=== PATIENT | male | born 1975 | race Caucasian/White ===

== ENCOUNTER 2017-08-06 01:29 | Emergency (ER) | payer OTHER ==
[2017-08-06] MEDS: ASPIRIN 81 MG CHEW TAB PO ONE (02:00)
--- NOTE | 2017-08-06 02:13 | ED Physician Documentation ---
General Adult - HISTORIAN Historian: patient, spouse - HPI Stated Complaint: Chest tightness tonight, hx of past 3 days with cough also Chief Complaint: General Adult Additional Information: Cough since 07/27. Last 3 days cough has been deeper, more severe, the last 3 days. Always non productive. Just didn't feel good this evening especially about midnight. Has pain/pressure mid chest that radiates into left arm. Had tingling left arm. Can't describe the pain. Pain is improved in the ER. HX hypertension. Gets bronchitis every year. Says his father 08/01 and his truck quit; under a lot of stress. - ROS CONST: denies: fever CVS/RESP: chest pain, cough - PAST HX Past History: hypertension, other (migraines) Surgeries/Procedures: other (ortho) Allergies/Adverse Reactions: Allergies Allergy/AdvReac Type Severity Reaction Status Date / Time No Known Allergies Allergy Verified 08/06/17 01:46 Home Medications: Ambulatory Orders Medication Instructions Recorded Eletriptan HBr [Relpax] 40 mg PO PRN PRN 08/06/17 Sumatriptan Succinate [Sumatriptan 100 mg PO PRN PRN 08/06/17 Succinate] - SOCIAL HX Smoking History: quit greater than 1 year, cigarettes, chew Alcohol Use: occasionally (5 drinks/week) Drug Use: none - FAMILY HX Family History: No - VITAL SIGNS Vital Signs: Vital Signs Temp Pulse Resp BP Pulse Ox 98.1 F 82 20 133/89 97 08/06/17 01:29 08/06/17 01:52 08/06/17 01:29 08/06/17 01:29 08/06/17 01:52 - REVIEWED ASSESSMENTS Nursing Assessment Reviewed: Yes Vitals Reviewed: Yes Progress - Progress Progress: Name: CASS ANDRES Date: Aug 06, 2017 2:05:37 AM STRAIGHTEDGE MAN Modality Type: CR Gender: M Description: CHEST : 75 Institution: [facility] Physician: STUART MUÑIZ - Portable chest Clinical history: CHEST PAIN FOR 4 DAYS Findings: Examination of the chest in single portable AP view demonstrates the lungs to be clear. Monitor leads superimpose the chest. Cardiovascular and mediastinal silhouettes are within normal limits. Impression: 1. Negative chest. Electronically signed on Aug 06, 2017 2:23:29 AM STRAIGHTEDGE MAN by: Mayo Land [id number], syays he has only momentary CP's which he can't describe, and they are relieved if he takes a deep breath. Labs, including serial Troponin I's, all negative. ED Results Lab/Radiology - Orders Orders: ED Orders Category Date Time Status Continuous EKG monitoring Q1H Care 08/06/17 01:52 Active Continuous Pulse Oximetry Q1H Care 08/06/17 01:52 Active CHEST 1 VIEW [RAD] Stat Exams 08/06/17 Ordered CBC/PLATELET/DIFF Routine Lab 08/06/17 Ordered CMP Routine Lab 08/06/17 Ordered TROPONIN I (cTnI) Stat Lab 08/06/17 Ordered URINALYSIS Routine Lab 08/06/17 Ordered Aspirin Med 08/06/17 01:57 Once 324 mg PO NOW ONE General Adult Physical Exam - PHYSICAL EXAM GENERAL APPEARANCE: mild distress (anxious) EENT: eye inspection normal, ENT inspection normal, pharynx normal (Mallampati 2 ) NECK: normal inspection, supple RESPIRATORY: no resp distress, chest non-tender, breath sounds normal CVS: reg rate & rhythm, heart sounds normal, no murmur, other (no HJR) ABDOMEN: soft, normal bowel sounds, no distension, non-tender BACK: normal inspection, no CVA tenderness, other (no vertebral tenderness) SKIN: warm/dry, normal color EXTREMITIES: non-tender, no evidence of injury NEURO: CN's nml as tested, motor nml, sensation nml, cognition normal Discharge Clincal Impression: Chest pain not due to acute coronary syndrome Referrals: Madelyn Polo MD [Primary Care Provider] - 2 Days Additional Instructions: Follow up with your regular provider as needed. Return to the ER if your condition worsens. Condition: Fair Disposition: 01 HOME, SELF-CARE Decision to Admit: NO Decision Time: 04:25
[2017-08-06 02:19] LABS: EOSINOPHILS % 3.7 % (0.0-6.8); MEAN CORPUSCULAR HEMOGLOBIN 32.6 pg (28.0-34.0); MONOCYTES % 5.3 % (0.0-11.0); NEUTROPHILS # 4.9 # k/uL (1.4-7.7)
[2017-08-06 02:36] LABS: eGFR (African) > 60; eGFR (Non-African) > 60
[2017-08-06 03:33] LABS: APPEARANCE,URINE CLEAR (CLEAR); COLOR,URINE YELLOW (YELLOW); OCCULT BLOOD,URINE NEGATIVE (NEGATIVE)
[2017-08-06 04:44] VITALS: BP 116/79
--- NOTE | 2017-08-06 13:45 | Diagnostic Imaging Report ---
STUART MUÑIZ [facility] [address] [facility] [address] [place] [address]. [id number] Report Submission Date: Aug 06, 2017 2:23:29 AM DIAMOND PICKER Patient Study Name: CASS ANDRES Date: Aug 06, 2017 2:05:37 AM DIAMOND PICKER Modality Type: CR Gender: M Description: CHEST : 75 Institution: [facility] Physician: STUART MUÑIZ Portable chest Clinical history: CHEST PAIN FOR 4 DAYS Findings: Examination of the chest in single portable AP view demonstrates the lungs to be clear. Monitor leads superimpose the chest. Cardiovascular and mediastinal silhouettes are within normal limits. Impression: 1. Negative chest. Electronically signed on Aug 06, 2017 2:23:29 AM DIAMOND PICKER by: Mayo ALEX
== END 2017-08-06 04:30 | disposition home or self-care (01) ==
LOC: ED 01:29
DX: R07.89 Other chest pain (principal)
CPT/HCPCS: 71010; 80053; 81002; 84484; 85025; 99283; S1016